=== PATIENT | male | born 1975 | race Caucasian/White ===

== ENCOUNTER 2017-05-23 12:44 | Emergency (ER) | payer SELFPAY ==
--- NOTE | 2017-05-23 13:13 | EDM.PDOC ---
ED HPI GENERAL MEDICAL PROBLEM - General Chief Complaint: Lower Extremity Injury/Pain Stated Complaint: LEFT KNEE INJURY Time Seen by Provider: 05/23/17 13:00 Source of Information: Reports: Patient History Limitations: Reports: No Limitations - History of Present Illness INITIAL COMMENTS - FREE TEXT/NARRATIVE: Patient is a 41 y/o male who presents to the E.D. c/o pain and swelling to the left knee. States this past Sunday while walking down his stairs he slipped on some ice. States his knee bent inward causing increased pain to the inner aspect of the knee. Continues to have pain to the medial/lateral aspect of the knee. Pain with weightbearing and flex/ext of the knee. Swelling has improved since the injury. Has been utilizing a laundry basket to move around his house. Has no prior injury to the affected knee. Denies any sensory motor deficits distally. Left Knee Pain Score (Numeric/FACES): 8 - Related Data Allergies Allergy/AdvReac Type Severity Reaction Status Date / Time acetaminophen [From Lortab] Allergy Vomiting Verified 05/23/17 12:55 hydrocodone [From Lortab] Allergy Vomiting Verified 05/23/17 12:55 Home Meds: Home Meds Cimetidine [Tagamet] 1 tab PO DAILY 05/23/17 [History] Past Medical History Cardiovascular History: Reports: High Cholesterol, Hypertension - Past Surgical History Musculoskeletal Surgical History: Reports: Other (See Below) Other Musculoskeletal Surgeries/Procedures:: fractured right knee x2 Review of Systems - Review of Systems Review Of Systems: ROS reveals no pertinent complaints other than HPI. ED EXAM, GENERAL - Physical Exam Exam: See Below Exam Limited By: No Limitations General Appearance: Alert, WD/WN, No Apparent Distress Ears: Hearing Grossly Normal Nose: Normal Inspection Throat/Mouth: Normal Voice, No Airway Compromise Respiratory/Chest: No Respiratory Distress, Lungs Clear, Normal Breath Sounds, No Accessory Muscle Use Cardiovascular: Normal Peripheral Pulses, Regular Rate, Rhythm Peripheral Pulses: 4+: Posterior Tibial (L), Posterior Tibial (R) Extremities: Other (Left knee: Swelling noted to the anterior lateral/medial aspect of the knee. Decreased range of motion noted secondary to discomfort. Pain along the medial, and lateral aspect of the joint. Increasing pain with valgus, varus, anterior/posterior drawer test. No sensorimotor deficits distally. No pain with palpation of the left foot, ankle, tib-fib, femur, and hip.) Neurological: Alert, Oriented, CN II-XII Intact, Normal Cognition, No Motor/ Sensory Deficits Psychiatric: Normal Affect, Normal Mood Skin Exam: Warm, Dry, Intact, Normal Color, No Rash Course - Vital Signs Last Recorded V/S: Last Vital Signs Temp 98.3 F 05/23/17 12:51 Pulse 84 05/23/17 12:51 Resp 16 05/23/17 12:51 BP 138/106 H 05/23/17 12:51 Pulse Ox 98 05/23/17 12:51 - Orders/Labs/Meds Orders: Active Orders 24 hr Category Date Time Status Knee 3V Lt [CR] Stat Exams 05/23/17 13:08 Taken DME for Discharge [COMM] Stat Oth 05/23/17 13:08 Ordered - Re-Assessments/Exams Free Text/Narrative Re-Assessment/Exam: Will obtain x-ray of the left knee. Ordered crutches and also knee immobilizer. Will discharge patient home with instructions as documented. 05/23/17 13:34 X-ray of the left knee reviewed with Dr. Carter with no acute bony abnormalities noted. Final interpretation is pending. Discharge instructions as documented. Departure - Departure Time of Disposition: 13:35 Disposition: Home, Self-Care 01 Condition: Good Clinical Impression: Swelling of joint of left knee, Sprain of knee Knee MCL sprain Qualifiers: Encounter type: initial encounter Laterality: left Qualified Code(s): S83.412A - Sprain of medial collateral ligament of left knee, initial encounter Injury of meniscus of left knee Qualifiers: Encounter type: initial encounter Qualified Code(s): S83.8X2A - Sprain of other specified parts of left knee, initial encounter Clinical Impression: (Ruled Out): Traumatic dislocation of knee joint - Discharge Information Instructions: Crutch Use, Adult, [id number], Knee Effusion, [id number]-[id number], Medial Collateral Knee Ligament Sprain, Combined Knee Ligament Sprain, Knee Sprain, Adult, [id number], Knee Immobilizer, [id number] Referrals: Mynor George MD [Physician] - Forms: ED Department Discharge Additional Instructions: YOu are to be nonweightbearing toe-touch only for balance. Utilizing crutches as instructed. Elevate when able to reduce any swelling and pain. Take Tylenol and ibuprofen in alternating fashion for discomfort. Utilize ice 3-4 times daily , 20 minutes in duration, do not place ice directly on the skin. Call today or tomorrow to schedule appointment to be seen by orthopedic surgeon in 7-10 days. Return to the ED if you develop any new or worsening symptoms. - My Orders Last 24 Hours: My Active Orders 05/23/17 13:08 Knee 3V Lt [CR] Stat DME for Discharge [COMM] Stat - Assessment/Plan Last 24 Hours: My Active Orders 05/23/17 13:08 Knee 3V Lt [CR] Stat DME for Discharge [COMM] Stat
--- NOTE | 2017-05-23 14:48 | CR ---
Left knee: AP, lateral and sunrise patellar views of the left knee were obtained. Comparison: No previous study to correlate with. Medial and lateral joint spaces are maintained in height. No joint effusion is seen. Patellofemoral joint appears within normal limits. No fracture or other abnormality is appreciated. Impression: 1. No abnormality is appreciated on three-view left knee exam. Diagnostic code #1
== END 2017-05-23 13:58 | disposition home or self-care (01) ==
LOC: JD.ED 12:44
DX: S83.412A Sprain of medial collateral ligament of left knee, initial encounter (principal); S83.8X2A Sprain of other specified parts of left knee, initial encounter; I10 Essential (primary) hypertension; Z88.5 Allergy status to narcotic agent; Z88.8 Allergy status to other drugs, medicaments and biological substances; Z79.899 Other long term (current) drug therapy; W00.0XXA Fall on same level due to ice and snow, initial encounter
CPT/HCPCS: 73562-26-LT; 73562-LT; 99283

== ENCOUNTER 2018-09-30 20:05 | Emergency (ER) | payer SELFPAY ==
--- NOTE | 2018-09-30 20:30 | EDM.PDOC ---
ED HPI GENERAL MEDICAL PROBLEM - General Chief Complaint: Trauma Stated Complaint: [facility] Time Seen by Provider: 09/30/18 20:05 Source of Information: Reports: EMS History Limitations: Reports: Other - History of Present Illness INITIAL COMMENTS - FREE TEXT/NARRATIVE: 42-year-old male presents to the ED per [place] [facility]. History [place] out of [place] closer to [place], [place]. History of a man who had fallen and become entangled in a gr auger. Patient had reportedly lost consciousness and no one perform CPR on scene because of the integument of his body in the gr auger they could not free him. The urine man who came to his side is identified that he spoke to him for perhaps 30 seconds and then faded and went unconscious. Paramedics state that when they arrived they found him to be asystolic. They recognized a tremendous soft tissue injury to his medial left thigh from groin to knee. They found no blood loss from the wound but did place return to [place] around the upper left thigh which was in place upon arrival. Monitoring en route to [facility] identified no spontaneous pulse i.e. asystole. Had establish an IO intravenous access in his right tibia. Javier device was in place and performing CPR upon arrival in the ED. Javier device was turned off once the patient arrived and was placed on the gurney. He was pallid. He appears to have bled out. Those were fixed and dilated and no cardiac motion identified on ultrasound. Clinically removed from the left leg and no blood came from the wound indicating that he has bled out. Patient was pronounced at 2007 hrs. no resuscitative efforts were continued. Placed a call to Dr. Ming shepherd but unfortunately was unable to reach him by cell phone or landline. I therefore summoned -- local surgeon who is acting joao. Dr. Way then attended the patient in the ED. I have spoken with a brother whom I believe resides in [place] and he indicates that he will discuss the findings with other family members and then arrange to come to [place] to clean the body. It is the opinion of the [facility] personnel that he works for that the patient would most likely want to be cremated. Dr. Way has attended the patient in the ED and requests that we call [facility] to take possession of the body at this time. Onset: Today Onset Date: 09/30/18 Onset Time: 18:30 Duration: Hour(s): Location: Reports: Lower Extremity, Left (Patient suffered extensive injuries to the medial aspect of his left thigh with complete avulsion of all tissues including the femoral arteries and veins.) - Related Data Allergies Allergy/AdvReac Type Severity Reaction Status Date / Time acetaminophen [From Lortab] Allergy Vomiting Verified 05/23/17 12:55 hydrocodone [From Lortab] Allergy Vomiting Verified 05/23/17 12:55 Home Meds: Home Meds Cimetidine [Tagamet] 1 tab PO DAILY 05/23/17 [History] Past Medical History Cardiovascular History: Reports: High Cholesterol, Hypertension - Past Surgical History Musculoskeletal Surgical History: Reports: Other (See Below) Other Musculoskeletal Surgeries/Procedures:: fractured right knee x2 Review of Systems - Review of Systems Review Of Systems: Unable To Obtain ED EXAM, GENERAL - Physical Exam Exam: See Below Exam Limited By: Other (Patient was pronounced on arrival.) General Appearance: Other (Pallid and cold.) Extremities: Other (Examination of the left lower extremity revealed a Brittany around the proximal left thigh in the groin. It was loosened and there was no blood loss from the femoral artery in the groin. It's quite apparent that he has lost all of his blood volume. Extensive soft tissue injury with complete loss of most of the quadriceps and medial hamstring musculature from the right leg from the groin to the knee. This includes all of the vasculature and femoral nerve.) Departure - Departure Time of Disposition: 20:07 (Pronounced at 2006. Pronounced on arrival. ) Disposition: 20 Preliminary Cause of *Q: Other_Special Instruction (Extent extensive soft tissue injuries to the left lower extremity including the femoral artery and veins with complete loss of all of his blood. Cause of --traumatic blood loss) Clinical Impression: Traumatic hemorrhage - Discharge Information *PRESCRIPTION DRUG MONITORING PROGRAM REVIEWED*: Not Applicable *COPY OF PRESCRIPTION DRUG MONITORING REPORT IN PATIENT JOSE GUADALUPE: Not Applicable
== END 2018-09-30 22:13 | disposition expired ==
LOC: JD.ED 20:05
DX: S75.002A Unspecified injury of femoral artery, left leg, initial encounter (principal); S76.101A Unspecified injury of right quadriceps muscle, fascia and tendon, initial encounter; I10 Essential (primary) hypertension; Z88.8 Allergy status to other drugs, medicaments and biological substances; Z88.5 Allergy status to narcotic agent; Z79.899 Other long term (current) drug therapy; W22.8XXA Striking against or struck by other objects, initial encounter
CPT/HCPCS: 92950; 99285; G0390